=== PATIENT | female | born 1960 | race Caucasian/White ===

== ENCOUNTER → 2019-12-17 12:24 | Outpatient (CLI) | payer OTHER, SELFPAY ==
--- NOTE | ~2019-12-17 | MR_ITS ---
EXAMINATION: MR brain/brain stem wo con DATE: 12/17/2019 14:13 INDICATION: Multiple sclerosis. TECHNIQUE: Magnetic resonance imaging (MRI) of the brain and brainstem was performed without intraven ous contrast. Sequences included sagittal and axial T1-weighted FLAIR, axial T1-weighted FSE, axial d iffusion-weighted FS EPI, sagittal T2-weighted FLAIR, axial T2*-weighted GRE, axial T2-weighted FLAIR Propeller, and axial T2-weighted Propeller. Apparent diffusion coefficient (ADC) maps were created. COMPARISON: Brain MRI 10/23/2016 FINDINGS: There are greater than 40 total lesions of increased T2-weighted signal intensity in the br ain. Of these lesions, at least 3 are periventricular, several are juxtacortical, and none are infrat entorial. There is no acute ischemic infarct or intracranial hemorrhage. The ventricles are normal in size. There is an old blowout fracture of medial wall of right orbit. The paranasal sinuses are rian r. There is a trace left mastoid effusion. IMPRESSION: 1. Worsened moderate nonspecific cerebral white matter disease, consistent with chronic small vessel ischemic disease and/or multiple sclerosis. Reviewed, dictated and finalized at location A.
[2019-12-17 13:16] LABS: Estimated Glomerular Filt Rate > 60
== END ==
PROVIDERS: PCP Family Medicine
DX: G35 Multiple sclerosis (principal); R93.0 Abnormal findings on diagnostic imaging of skull and head, not elsewhere classified
CPT/HCPCS: 70551

== ENCOUNTER → 2020-01-10 12:25 | Outpatient (CLI) | payer OTHER, SELFPAY ==
--- NOTE | ~2020-01-10 | MR_ITS ---
EXAMINATION: MR cervical spine wo/w con DATE: 01/10/2020 14:40 INDICATION: Multiple sclerosis. TECHNIQUE: Magnetic resonance imaging (MRI) of the cervical spine was performed without and with 10 m L MultiHance intravenous contrast. Sequences included sagittal and axial T2-weighted FSE, sagittal ST IR FSE, and sagittal and axial T1-weighted FSE. Postcontrast sequences included sagittal and axial T1 -weighted FS FSE. COMPARISON: Cervical spine MRI 06/30/2018 FINDINGS: Bone alignment is normal. Vertebral body heights are normal. Is mildly decreased disc heigh t at C3-C4, moderately decreased disc height at C4-C5, severely decreased disc height at C5-C6, and m ildly decreased disc height at C6-C7. The spinal cord signal intensity is normal. The following disc levels are specifically discussed: C2-C3: There is a central protrusion. There is no uncovertebral joint osteoarthritis. There is mild b ilateral facet joint osteoarthritis. There is no neural foraminal stenosis. There is no central canal stenosis. C3-C4: There is a central extrusion. There is no uncovertebral joint osteoarthritis. There is mild bi lateral facet joint osteoarthritis. There is no neural foraminal stenosis. There is mild central reji l stenosis with ventral indentation of the spinal cord. C4-C5: The disc is bulging. There is moderate bilateral uncovertebral joint osteoarthritis. There is mild bilateral facet joint osteoarthritis. There is mild left neural foraminal stenosis. There is mil d central canal stenosis with ventral indentation of the spinal cord. C5-C6: The disc is bulging. There is severe bilateral uncovertebral joint osteoarthritis. There is mi ld bilateral facet joint osteoarthritis. There is mild bilateral neural foraminal stenosis. There is mild central canal stenosis with ventral indentation of the spinal cord. C6-C7: The disc is bulging. There is mild right and moderate left uncovertebral joint osteoarthritis. There is moderate bilateral facet joint osteoarthritis. There is mild left neural foraminal stenosis . There is mild central canal stenosis. C7-T1: The disc does not extend beyond the endplate margin. There is no uncovertebral joint osteoarth ritis. There is mild bilateral facet joint osteoarthritis. There is no neural foraminal stenosis. The re is no central canal stenosis. IMPRESSION: 1. Normal spinal cord. 2. Worsened severe cervical spondylosis. Reviewed, dictated and finalized at location A. ICAL THERAPY TECHNICIAN
--- NOTE | ~2020-01-10 | MR_ITS ---
EXAMINATION: MR thoracic spine wo/w con DATE: 01/10/2020 14:39 INDICATION: Multiple sclerosis. TECHNIQUE: Magnetic resonance imaging (MRI) of the thoracic spine was performed without and with 10 m L MultiHance intravenous contrast. Sequences included sagittal and axial T2-weighted FSE, sagittal T2 -weighted FS FSE, and sagittal and axial T1-weighted FSE. Postcontrast sequences included sagittal an d axial T1-weighted FS FSE. COMPARISON: Thoracic spine MRI 06/30/2018 FINDINGS: There is 4 degrees levocurvature of thoracic spine and 6 degrees dextrocurvature of thoraco lumbar spine. There is 8 degrees levocurvature of lumbar spine. There are Schmorl's nodes at most lev els. There is mild chronic anterior wedging of multiple vertebral bodies. There is mildly decreased d isc height at multiple levels in mid and upper thoracic spine. At T2-T3, there is a central protrusio n with mild central canal stenosis. At T3-T4, there is a central protrusion with mild central canal s tenosis. There is multilevel mild facet joint osteoarthritis. No neural foraminal stenosis. The spina l cord signal intensity is normal. IMPRESSION: 1. Normal spinal cord. 2. Mild thoracic spondylosis. Reviewed, dictated and finalized at location A. ER COMPOUNDER
--- NOTE | ~2020-01-10 | MR_ITS ---
EXAMINATION: MR brain/brain stem w con DATE: 01/10/2020 14:44 INDICATION: Multiple sclerosis. TECHNIQUE: Magnetic resonance imaging (MRI) of the brain and brainstem was performed with 10 mL Multi Warren intravenous contrast. Sequences included axial T1-weighted FSE and postcontrast axial, sagittal , and coronal T1-weighted FSE. COMPARISON: Brain MRI 12/17/2019, 01/26/18 FINDINGS: There is no abnormal contrast enhancement. The ventricles are normal in size. There is an o ld blowout fracture of medial wall of right orbit. IMPRESSION: 1. None of the white matter lesions described on the recent brain MRI demonstrate contrast enhancemen t. Reviewed, dictated and finalized at location A. AIN STITCHER IMPRESSION: 1. None of the white matter lesions described on the recent brain MRI demonstra te contrast enhancement.
[2020-01-10 13:30] LABS: Estimated Glomerular Filt Rate > 60
== END ==
DX: G35 Multiple sclerosis (principal); M47.813 Spondylosis without myelopathy or radiculopathy, cervicothoracic region; M48.03 Spinal stenosis, cervicothoracic region
CPT/HCPCS: 70552; 72156; 72157; A9577